=== PATIENT | male | born 2005 | race Caucasian/White ===

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

== ENCOUNTER → 2023-05-04 16:47 | Outpatient (BNVA) | payer SELFPAY | PROVIDERS: Visit Provider Nurse Practitioner Family | DX: R50.9 Fever, unspecified (principal) | CPT/HCPCS: 87400; 87426 ==

== ENCOUNTER 2024-08-12 10:28 | Emergency (ER) | payer SELFPAY ==
[2024-08-12 11:02] VITALS: BP 121/79; PULSE 91; RESP 20; TEMP 36.7; O2SAT 100; BMI 19.5
--- NOTE | 2024-08-12 11:47 | CTR_ITS ---
PROCEDURE INFORMATION: Exam: CT Abdomen And Pelvis With Contrast Exam date and time: 08/12/2024 12:10 PM Age: 19 years old Clinical indication: Abdominal pain; Localized; Right lower quadrant (rlq); Additional info: Rlq pain TECHNIQUE: Imaging protocol: Computed tomography of the abdomen and pelvis with contrast. Radiation optimization: All CT scans at this facility use at least one of these dose optimization techniques: automated exposure control; mA and/or kV adjustment per patient size (includes targeted exams where dose is matched to clinical indication); or iterative reconstruction. Contrast material: OMNI 350; Contrast volume: 100 ml; Contrast route: INTRAVENOUS (IV); COMPARISON: CR XR chest 1V portable [id number] 02/24/2022 10:35 PM RADIATION DOSE METRICS: Total DLP (mGy-cm): 347.16 FINDINGS: Lungs: Subsegmental bibasilar atelectasis. The visualized lung bases are otherwise grossly clear. Diaphragm: No evidence of diaphragmatic defect. Liver: No focal hepatic lesion. Gallbladder and biliary ducts: Unremarkable. No intra-hepatic or extra-hepatic biliary dilatation. Pancreas: Unremarkable. Spleen: Unremarkable. Adrenal glands: Unremarkable. Kidneys and ureters: No renal parenchymal abnormality. No hydronephrosis or ureteral stone. Stomach and bowel: No evidence of bowel obstruction or perienteric inflammatory changes. Mild wall thickening of the ascending colon raising the question of an infectious or inflammatory colitis. Appendix: Normal appendix. Intraperitoneal space: No evidence of free air or fluid collection. Vasculature: No aneurysmal dilatation or dissection of the abdominal aorta. The celiac trunk, SMA and GREG are grossly patent. No evidence of IVC thrombus. The portal vein, SMV and splenic veins are grossly patent. Lymph nodes: No adenopathy. Urinary bladder: Grossly unremarkable. Reproductive: Grossly unremarkable. Bones/joints: No evidence of acute fracture or aggressive osseous lesion. Soft tissues: No evidence of fluid collection or hematoma in the superficial soft tissues. CT/CT abdomen pelvis w con* [id number] IMPRESSION: 1. Possible infectious or inflammatory colitis. Otherwise no evidence of acute abnormality in the abdomen or pelvis.
[2024-08-12 12:00] VITALS: BP 129/74; PULSE 68; O2SAT 99
[2024-08-12 12:16] LABS: Basophils % 0.4 %; Eosinophils % 0.2 %; Hematocrit 40.7 % (37-53); Lymphocytes # 2.1 10^3/uL (0.8-4.8); Lymphocytes % 38.7 %; Mean Corpuscular HGB Conc 32.9 g/dL (30-55); Mean Corpuscular Hemoglobin 28.5 pg (27-33); Mean Corpuscular Volume 86.6 fl (82-101); Mean Platelet Volume 9.1 fL (7.4-10.4); Monocytes # 0.4 10^3/uL (0.2-0.9); Monocytes % 7.2 %; Neutrophils # 2.89 10^3/uL (1.8-7.7); Neutrophils % 53.3 %; Nucleated Red Blood Cells % 0 %; Platelet Count 219 10^3/cmm (157-399); Red Cell Distribution Width 12.8 % (12.1-15.1); White Blood Count 5.42 10^3/uL (3.29-11.43)
[2024-08-12] MEDS: sodium chloride 0.9% 1,000 ML 999 ML IV (12:25)
[2024-08-12 12:30] VITALS: BP 136/83; PULSE 80; O2SAT 99
[2024-08-12 12:39] LABS: Alanine Aminotransferase 11 U/L (0-41); Albumin Level 4.9 g/dL (3.5-5.2); Alkaline Phosphatase 83 U/L (40-130); Anion Gap 14.5 (5-19); Aspartate Amino Transferase 14 U/L (0-40); Blood Urea Nitrogen 14 mg/dL (6-20); Calcium 9.6 mg/dL (8.5-10.5); Carbon Dioxide 26 mmol/L (22-29); Chloride 98 mmol/L (98-107); Creatinine Clr Calc Pharmacy 166.6501; Globulin 2.9 g/dL (1.3-4.6); Glomerular Filtration Rate 142.4 mL/min (90-130); Glucose 85 mg/dL (65-115); Lipase 17 U/L (13-60); Osmolality Calculated 280 mOsm/kg (285-295); Potassium 3.5 mmol/L (3.5-5.1); Sodium 135 mmol/L (136-145); Total Bilirubin 0.7 mg/dL (0.15-1.2); Total Protein 7.8 g/dL (6.6-8.7)
[2024-08-12 13:30] VITALS: BP 110/63; PULSE 82; RESP 18; O2SAT 99
[2024-08-12 13:34] LABS: Bilirubin Urine Negative (Negative); Blood Urine Negative (Negative); Glucose Urine UA Negative (Normal); Ketones Urine Negative (Negative); Leukocyte Esterase Urine Negative (Negative); Nitrate Urine Negative (Negative); Protein Urine Trace (Negative); Urine Appearance Clear (CLEAR); Urine Color Yellow (Yellow); Urobilinogen Urine 0.2 mg/dL (Negative); pH Urine 7.5 (5-7)
[2024-08-12 13:39] LABS: Add Urine Microscopic? YES; Bacteria Urine None Seen /hpf; Hyaline Casts Urine 0-4 /lpf; RBC Urine 0-2 /hpf (0-2); Squamous Epithelial Cell Urine 0-5 /hpf (0-5); WBC Urine 0-5 /hpf (0-5)
[2024-08-12 13:41] LABS: Specific Gravity, Urine >= 1.099 (1.005-1.030)
--- NOTE | 2024-08-12 14:04 | W.ED.ABDPA2 ---
HPI - Abdominal Pain General: Chief Complaint: Abdominal Pain Stated Complaint: rt lower abd pain Time Seen by Provider: 08/12/24 11:29 History of Present Illness: This patient is a 19-year-old white male who presents to the emergency department with right lower quadrant pain. He states this pain started today. He has had some mild diarrhea. No nausea or vomiting. No fever. No urinary symptoms. Patient states he has been belching for about a month now. He has not noticed any blood in his stools. He has no chronic medical problems. No past surgical history. Associated Symptoms: Reports belching and diarrhea; Denies hematochezia Related Data Previous Rx's ?Medication ?Instructions ?Recorded dicyclomine 10 mg capsule 10 mg PO QID PRN abdominal pain 08/12/24 #30 caps Allergies Allergy/AdvReac Type Severity Reaction Status Date / Time No Known Allergies Allergy Verified 08/12/24 11:12 Review of Systems General: Reports: 10 or more systems reviewed and unremarkable except in HPI and below GI: Reports: abdominal pain, diarrhea and belching; Denies: hematochezia [facility] ED PFS: Medical History (Updated 08/12/24 @ 14:01 by Hussein Lira MD) ADHD (attention deficit hyperactivity disorder) Juvenile idiopathic scoliosis, lumbar region Surgical History No pertinent past surgical history Family History Mother Anxiety Father Anxiety Social History Smoking and tobacco/nicotine status: never used tobacco/nicotine Second hand smoke exposure: No Alcohol intake: never Substance/Drug Use: never Current gender identity: Male Physical Exam Const: COMMON NORMALS: no acute distress, patient oriented x3 and no limitations GENERAL APPEARANCE: cooperative and comfortable HENMT: COMMON NORMALS: normocephalic, atraumatic, Normal nasal mucous membranes and turbinates present, moist oral mucous membranes and oropharynx normal HEAD & SCALP: normal to inspection, normocephalic and atraumatic FACE & SINUS: normal facial exam NOSE: Normal nasal mucous membranes and turbinates present Eye: COMMON NORMALS: Equal, round and reactive pupils present, EOMs intact bilaterally and conjunctivae normal GENERAL EYE: appearance normal, both eyes and all related structures CONJUNCTIVA: Yes conjunctivae normal PUPIL: Yes Equal, round and reactive pupils present Neck/C-Spine: COMMON NORMALS: supple and no JVD Chest: COMMONS NORMALS: normal inspection of the chest Resp: COMMON NORMALS: normal respiratory effort and clear to auscultation bilaterally AUSCULTATION: clear to auscultation bilaterally Cardio: COMMON NORMALS: no JVD, regular rate, regular rhythm, No gallops present (Cardio), No murmurs present (Cardio) and No rub (Cardio) RATE: regular rate RHYTHM: regular rhythm GI: COMMON NORMALS: Soft to palpation AUSCULTATION: Yes normoactive bowel sounds PALPATION: Yes Soft to palpation and Yes Tenderness to palpation present (GI) (Mild) Details: RLQ : COMMON NORMALS: Yes no CVA tenderness BLADDER/KIDNEY EXAM: Yes no CVA tenderness Back/Pelvis: COMMON NORMALS: no CVA tenderness and thoracic and lumbar spine normal to inspection Extremity: COMMON NORMALS: normal to inspection Neuro: COMMON NORMALS: patient oriented x3 and CN's II-XII intact bilaterally Psych: COMMON NORMALS: mental status grossly normal, Normal thought process present and cooperative THOUGHT PROCESS: Normal thought process present Skin: COMMON NORMALS: no rashes or lesions noted, turgor normal and no jaundice GENERAL SKIN EXAM: no rashes or lesions noted and turgor normal Course Vital Signs: Vital signs: Vital Signs Temperature 98.1 F 08/12/24 11:02 Pulse Rate 82 08/12/24 13:30 Respiratory Rate 18 08/12/24 13:30 Blood Pressure 110/63 08/12/24 13:30 Pulse Oximetry 99 08/12/24 13:30 Oxygen Delivery Me thod Room Air 08/12/24 13:30 MDM - Abdominal Pain Medical Decision Making CBC, CMP and lipase were normal. Urinalysis normal. CT scan of the abdomen and pelvis was read by the radiologist. There is some thickening of the ascending colon consistent with either infectious or inflammatory colitis. I discussed the results with the patient and his father. At this patient's age she is at higher risk for an inflammatory bowel disease. I recommended he follow-up with his primary care physician with possible referral to GI for further workup. I did prescribe Bentyl for cramping. He was discharged in stable condition. Lab Data 08/12/24 12:08 08/12/24 12:08 Labs/Radiology: Radiology Impressions Abdomen/Pelvis CT 08/12/24 11:47 IMPRESSION: 1. Possible infectious or inflammatory colitis. Otherwise no evidence of acute abnormality in the abdomen or pelvis. Laboratory Results WBC 5.42 10^3/uL (3.29-11.43) 08/12/24 12:08 RBC 4.70 10^6/uL (3.85-5.65) 08/12/24 12:08 Hgb 13.40 g/dL (11.27-16.99) 08/12/24 12:08 Hct 40.7 % (37-53) 08/12/24 12:08 MCV 86.6 fl (82-101) 08/12/24 12:08 MCH 28.5 pg (27-33) 08/12/24 12:08 MCHC 32.9 g/dL (30-55) 08/12/24 12:08 RDW 12.8 % (12.1-15.1) 08/12/24 12:08 Plt Count 219 10^3/cmm (157-399) 08/12/24 12:08 MPV 9.1 fL (7.4-10.4) 08/12/24 12:08 Neut % (Auto) 53.3 % 08/12/24 12:08 Lymph % (Auto) 38.7 % 08/12/24 12:08 [place] % (Auto) 7.2 % 08/12/24 12:08 Eos % (Auto) 0.2 % 08/12/24 12:08 Baso % (Auto) 0.4 % 08/12/24 12:08 Neut # (Auto) 2.89 10^3/uL (1.8-7.7) 08/12/24 12:08 Lymph # (Auto) 2.1 10^3/uL (0.8-4.8) 08/12/24 12:08 [place] # (Auto) 0.4 10^3/uL (0.2-0.9) 08/12/24 12:08 Eos # (Auto) 0.0 10^3/uL (0.0-0.8) 08/12/24 12:08 Baso # (Auto) 0.0 10^3/uL (0.0-0.1) 08/12/24 12:08 Nucleated RBC % (auto) 0 % 08/12/24 12:08 Nucleated RBCs # 0.0 /100WBC 08/12/24 12:08 Sodium 135 mmol/L (136-145) L 08/12/24 12:08 Potassium 3.5 mmol/L (3.5-5.1) 08/12/24 12:08 Chloride 98 mmol/L (98-107) 08/12/24 12:08 Carbon Dioxide 26 mmol/L (22-29) 08/12/24 12:08 Anion Gap 14.5 (5-19) 08/12/24 12:08 BUN 14 mg/dL (6-20) 08/12/24 12:08 Creatinine 0.7 mg/dL (0.7-1.2) 08/12/24 12:08 GFR Calculation 142.4 mL/min (90-130) H 08/12/24 12:08 Glucose 85 mg/dL (65-115) 08/12/24 12:08 Calculated Osmolality 280 mOsm/kg (285-295) L 08/12/24 12:08 Calcium 9.6 mg/dL (8.5-10.5) 08/12/24 12:08 Total Bilirubin 0.7 mg/dL (0.15-1.2) 08/12/24 12:08 AST 14 U/L (0-40) 08/12/24 12:08 ALT 11 U/L (0-41) 08/12/24 12:08 Alkaline Phosphatase 83 U/L (40-130) 08/12/24 12:08 Total Protein 7.8 g/dL (6.6-8.7) 08/12/24 12:08 Albumin 4.9 g/dL (3.5-5.2) 08/12/24 12:08 Globulin 2.9 g/dL (1.3-4.6) 08/12/24 12:08 Lipase 17 U/L (13-60) 08/12/24 12:08 Urine Color Yellow (Yellow) 08/12/24 13:04 Urine Appearance Clear (CLEAR) 08/12/24 13:04 Urine pH 7.5 (5-7) 08/12/24 13:04 Ur Specific [place] >= 1.099 (1.005-1.030) H 08/12/24 13:04 Urine Protein Trace (Negative) A 08/12/24 13:04 Urine Glucose (UA) Negative (Normal) 08/12/24 13:04 Urine Ketones Negative (Negative) 08/12/24 13:04 Urine Blood Negative (Negative) 08/12/24 13:04 Urine Nitrate Negative (Negative) 08/12/24 13:04 Urine Bilirubin Negative (Negative) 08/12/24 13:04 Urine Urobilinogen 0.2 mg/dL (Negative) 08/12/24 13:04 Ur Leukocyte Esterase Negative (Negative) 08/12/24 13:04 Urine RBC 0-2 /hpf (0-2) 08/12/24 13:04 Urine WBC 0-5 /hpf (0-5) 08/12/24 13:04 Ur Squamous Epith Cells 0-5 /hpf (0-5) 08/12/24 13:04 Amorphous Sediment Not Reportable 08/12/24 13:04 Urine Bacteria None seen /hpf (NONE) 08/12/24 13:04 Hyaline Casts 0-4 /lpf H 08/12/24 13:04 All radiology interpretation(s) finalized by discharge Discharge Plan Discharge Patient Disposition: Home Clinical Impression: Colitis Condition: Stable Prescriptions: New dicyclomine 10 mg capsule 10 mg PO QID PRN (Reason: abdominal pain) Qty: 30 0RF Discharge Orders: Discharge ED (Routine); Ordered 08/12/24 Ordered By: Hussein Lira Patient Instructions: Colitis (ED) Activity Restrictions/Additional Instructions: Follow-up with your primary care provider for further workup. You may need referral to GI for workup of inflammatory bowel disease. Print Language: Lithuanian Coding Level of Care Code ED Jet Mechanic for Betsy Kennedy
[2024-08-12 14:11] VITALS: BP 130/72; PULSE 70; O2SAT 100
== END 2024-08-12 14:12 | disposition home or self-care (01) ==
PROVIDERS: Emergency Provider Emergency Medicine
DX: K52.9 Noninfective gastroenteritis and colitis, unspecified (principal)
CPT/HCPCS: 74177; 80053; 81001; 83690; 85025; 96360; 96361; 99284; J7030